=== PATIENT | male | born 1990 | race Two or more races ===

== ENCOUNTER 2017-08-15 22:10 | Emergency (ER) | payer MEDICAID ==
[~2017-08-15] VITALS: Ht 170.2 cm; Wt 88.3 kg
[2017-08-15 23:24] VITALS: BP 129/77
== END 2017-08-15 23:25 | disposition home or self-care (01) ==
LOC: ER 22:11
DX: R20.2 Paresthesia of skin (principal); R42 Dizziness and giddiness; F12.90 Cannabis use, unspecified, uncomplicated; F14.90 Cocaine use, unspecified, uncomplicated
CPT/HCPCS: 99281

== ENCOUNTER 2021-09-19 17:40 | Emergency (ER) | payer SELFPAY ==
[~2021-09-19] VITALS: Ht 170.2 cm; Wt 86.4 kg
[2021-09-19 18:14] VITALS: BP 113/81
== END 2021-09-19 21:04 | disposition left against medical advice (07) ==
LOC: ER 17:41
DX: R68.84 Jaw pain (principal); Z53.21 Procedure and treatment not carried out due to patient leaving prior to being seen by health care provider